=== PATIENT | female | born 1945 | race Caucasian/White ===

== ENCOUNTER 2018-12-14 16:30 | Emergency (ER) | payer OTHER ==
[~2018-12-14] VITALS: Ht 149.9 cm; Wt 59.5 kg
[~2018-12-14 16:30] MED LIST: AMLO10TA8 PO; ASPI-515 PO; ERGO500017 PO; LOSA100T14 PO; METF500T17 PO; OMEP-110 PO; SIMV20TA3 PO
--- NOTE | 2018-12-14 17:15 | NUR ---
PT TO ROOM FROM LOBBY
[2018-12-14] MEDS ORDERED: ACETAMINOPHEN 325 MG TABLET PO ONE (18:00)
[2018-12-14] MEDS ORDERED: CYCLOBENZAPRINE 10 MG TABLET PO ONE (18:00)
[2018-12-14] MEDS ORDERED: KETOROLAC 30 MG/1 ML IM ONE (18:00)
[2018-12-14] MEDS ORDERED: ACETAMINOPHEN 325 MG TABLET ONE (18:03)
[2018-12-14] MEDS ORDERED: KETOROLAC 30 MG/1 ML ONE (18:03)
[2018-12-14] MEDS ORDERED: CYCLOBENZAPRINE 10 MG TABLET ONE (18:03)
[2018-12-14] MEDS ORDERED: KETOROLAC 30 MG/1 ML IVPush ONE (18:30)
--- NOTE | 2018-12-14 18:30 | NUR ---
pt to xray
[2018-12-14 18:31] LABS: ALBUMIN 3.6 g/dL (3.4-5.0); ANION GAP 7 mmol/L (5-15); CALCIUM 9.9 mg/dL (8.5-10.1); CHLORIDE 106 mmol/L (98-107)
[2018-12-14 18:32] LABS: CREATININE 1.71 mg/dL (0.55-1.02)
[2018-12-14 18:42] LABS: MICROSCOPIC AUTO
[2018-12-14 18:49] LABS: CULTURE INDICATED? YES
[2018-12-14] MEDS ORDERED: SODIUM CHLORIDE FLUSH 10ML SYR IVF ONE (19:00)
[2018-12-14] MEDS ORDERED: CEFTRIAXONE PMX 1GM/50ML 50 ML IV ONE (19:00)
[2018-12-14 19:02] LABS: BASOPHILS # (AUTO) 0.04 x10^3/uL (0-0.1); BASOPHILS % (AUTO) 1 % (0-1); EOSINOPHILS # (AUTO) 0.33 x10^3/uL (0-0.4); EOSINOPHILS % (AUTO) 5 % (1-7); LYMPHOCYTES # (AUTO) 1.14 x10^3/uL (1-3.4); LYMPHOCYTES % (AUTO) 16 % (22-44); MD SCAN; MEAN CORPUSCULAR HEMOGLOBIN 28.1 pg (27.0-34.8); MEAN CORPUSCULAR VOLUME 87.8 fL (80-100); MEAN PLATELET VOLUME 10.8 fL (7.4-10.4); MONOCYTES % (AUTO) 4 % (2-9); NEUTROPHILS # (AUTO) 5.35 x10^3/uL (1.8-6.8); NEUTROPHILS % (AUTO) 75 % (42-75); PLATELET COUNT 159 x10^3/uL (130-400); RED BLOOD COUNT 3.63 x10^6/uL (3.82-5.3); RED CELL DISTRIBUTION WIDTH 14.4 % (9.6-15.2)
[2018-12-14] MEDS ORDERED: CEFTRIAXONE PMX 1GM/50ML 50 ML ONE (19:13)
--- NOTE | 2018-12-14 19:16 | NUR ---
report to pancho Terrell.
--- NOTE | 2018-12-14 19:52 | NUR ---
report taken from pancho Terrell.
[2018-12-14 20:15] VITALS: BP 165/76
--- NOTE | 2018-12-14 20:28 | NUR ---
piv dc'd with tip intact. pt given dc instructions and script, pt and her daughter (translating for pt) educated regarding dc rx for omnicef and flexiril. pt and daughter verbalize understanding. pt ambulatory with steady gait at dc, given wc escort to dc. pt a&o, resps even and unlabored, nadn at dc. all questions answered.
== END 2018-12-14 20:28 | disposition home or self-care (01) ==
LOC: ED 19:10
DX: M54.42 Lumbago with sciatica, left side (principal); N30.00 Acute cystitis without hematuria; E78.00 Pure hypercholesterolemia, unspecified; N18.9 Chronic kidney disease, unspecified; R73.9 Hyperglycemia, unspecified
CPT/HCPCS: 36415; 72110; 73502; 74176; 80048; 81001; 82040; 85025; 87077; 87086; 87186; 96365; 96375; 99284; J0696; J1885

== ENCOUNTER 2019-09-25 23:08 | Inpatient (IN) | payer OTHER ==
[~2019-09-25] VITALS: Ht 144.8 cm; Wt 69.6 kg
[2019-09-26] MEDS ORDERED: DEXAMETHASONE 4 MG TABLET ONE (00:08)
[2019-09-26] MEDS ORDERED: ACETAMINOPHEN 325 MG TABLET ONE (00:09)
[2019-09-26] MEDS ORDERED: ONDANSETRON ODT 4 MG ONE (00:17)
[2019-09-26 00:22] LABS: BASOPHILS # (AUTO) 0.01 x10^3/uL (0-0.1); BASOPHILS % (AUTO) 0 % (0-1); EOSINOPHILS % (AUTO) 1 % (1-7); LYMPHOCYTES # (AUTO) 0.63 x10^3/uL (1-3.4); LYMPHOCYTES % (AUTO) 7 % (22-44); MD NO; MEAN CORPUSCULAR HEMOGLOBIN 28.9 pg (27.0-34.8); MEAN CORPUSCULAR HGB CONC 32.3 g/dL (32.4-35.8); MEAN CORPUSCULAR VOLUME 89.3 fL (80-100); MONOCYTES # (AUTO) 0.33 x10^3/uL (0.2-0.8); MONOCYTES % (AUTO) 4 % (2-9); NEUTROPHILS # (AUTO) 7.86 x10^3/uL (1.8-6.8); NEUTROPHILS % (AUTO) 88 % (42-75); PLATELET COUNT 197 x10^3/uL (130-400); RED CELL DISTRIBUTION WIDTH 15.6 % (9.6-15.2)
--- NOTE | 2019-09-26 00:29 | NUR ---
Patient SPO2 80% on RA. Applied O2, 3lpm NC, SPO2 increased to 95%. Breathing tx ordered by provider.
[2019-09-26] MEDS ORDERED: ACETAMINOPHEN 325 MG TABLET PO ONE (00:30)
[2019-09-26] MEDS ORDERED: ALBUTEROL/IPRATROPIUM 2.5MG/0.5MG, 3 ML NPPB ONE (00:30)
[2019-09-26] MEDS ORDERED: DEXAMETHASONE 4 MG TABLET PO ONE (00:30)
[2019-09-26] MEDS ORDERED: ONDANSETRON ODT 4 MG PO ONE (00:30)
[2019-09-26 00:34] LABS: ALBUMIN 3.6 g/dL (3.4-5.0); ANION GAP 8 mmol/L (5-15); CALCIUM 9.3 mg/dL (8.5-10.1); CHLORIDE 109 mmol/L (98-107)
[2019-09-26] MEDS ORDERED: ALBUTEROL/IPRATROPIUM 2.5MG/0.5MG, 3 ML ONE (00:34)
[2019-09-26 00:35] LABS: RAPID INFLUENZA A Negative (Negative); RAPID INFLUENZA B Negative (Negative)
[2019-09-26 00:37] LABS: ALANINE AMINOTRANSFERASE 18 U/L (12-78); ALKALINE PHOSPHATASE 63 U/L (45-117); BILIRUBIN,TOTAL 0.7 mg/dL (0.2-1.0); TOTAL PROTEIN 8.2 g/dL (6.4-8.2)
--- NOTE | 2019-09-26 00:39 | NUR ---
RT in room
--- NOTE | 2019-09-26 00:55 | NUR ---
Patient states she is feeling less SOB.
--- NOTE | 2019-09-26 01:16 | NUR ---
PT RESTING ON GURNEY, STATED SHE FEELS BETTER AFTER THE RESPIRATORY T/X, LIZZIE SNEEDS AT THSI TIME, MONITORS IN PLACE, CALL LIGHT WITHIN REACH. CHART UP FOR RECHECK
[2019-09-26] MEDS ORDERED: SODIUM CHLORIDE 0.9% 1,000 ML IV ONE (01:28)
[2019-09-26] MEDS ORDERED: SODIUM CHLORIDE FLUSH 10ML SYR IVF ONE (01:30)
[2019-09-26] MEDS ORDERED: AZITHROMYCIN 500 MG in SODIUM CHLORIDE 0.9% 250 ML IV ONE (01:30)
[2019-09-26] MEDS ORDERED: CEFTRIAXONE PMX 1GM/50ML 50 ML IV ONE (01:30)
--- NOTE | 2019-09-26 01:39 | NUR ---
tp: [facility] refused pt request for transfer.
[2019-09-26] MEDS ORDERED: CEFTRIAXONE PMX 1GM/50ML 50 ML ONE (01:42)
--- NOTE | 2019-09-26 01:49 | NUR ---
IV SITE STARTED, IV FLUIDS INFUSING
[2019-09-26] MEDS ORDERED: GLIP5TAB10 PO (01:56)
[2019-09-26] MEDS ORDERED: HYDROcodone/APAP 5/325 TABLET PO PRN (02:00)
--- NOTE | 2019-09-26 03:19 | NUR ---
PT RESTING ON HOSPITAL BED, IV FLUIDS AND ABX'S INFUSING, MONITORS IN PLACE, DENIES NEEDS AT THSI TIME, CALL LIGHT WITHIN REACH. AWAITING ROOM FOR ADMIT
[2019-09-26] MEDS: SODIUM CHLORIDE 0.9% 1,000 ML IV SCH ×2 (03:28→15:49)
--- NOTE | 2019-09-26 04:30 | NUR ---
PT RESTING ALMLY, NAD, DENIES NEEDS, MONITORS IN PLACE, RESPIRATIONS EVEN AND UNLABORED, CALL LIGHT WITHIN REACH
--- NOTE | 2019-09-26 05:51 | NUR ---
PT RESTING WITH EYES CLOSED, NAD, EQUAL CHEST RISE/FALL OBSERVED, MONITORS IN PLACE, AWAITING ROOM FOR ADMIT
--- NOTE | 2019-09-26 06:58 | NUR ---
BEDSIDE REPORT GIVEN TO RADHAMES DAVIS
--- NOTE | 2019-09-26 07:05 | NUR ---
Davie bobo in ED - 09/26/19 at 0802 by KALANI REC BS REPORT PT RESTING PROVIDE PILLOW WAITING ON CT
--- NOTE | 2019-09-26 07:05 | NUR ---
REC BS REPORT PT RESTING
[2019-09-26] MEDS ORDERED: INSULIN LISPRO SINGLE DOSE, ER SQ-INSULIN ONE (07:19)
[2019-09-26] MEDS: INSULIN LISPRO 100 UNITS/ML, PEN SQ-INSULIN SCH ×4 (07:21→21:51)
[2019-09-26] MEDS ORDERED: AMLODIPINE 5 MG TABLET PO SCH (09:00)
--- NOTE | 2019-09-26 09:36 | NUR ---
REPORT RECEIVED FROM RADHAMES DAVIS, THIS RN ASSUMING CARE AT THIS TIME.
--- NOTE | 2019-09-26 09:44 | NUR ---
PHARMACY CALLED AND ASKED TO VERIFY AM HOME MEDS.
[2019-09-26] MEDS ORDERED: AMLODIPINE 5 MG TABLET ONE (10:01)
[2019-09-26] MEDS ORDERED: FAMOTIDINE 20 MG TABLET ONE (10:01)
[2019-09-26] MEDS ORDERED: OMEPRAZOLE 20 MG CAPSULE.DR ONE (10:04)
[2019-09-26] MEDS: OMEPRAZOLE 20 MG CAPSULE.DR PO SCH (10:05)
--- NOTE | 2019-09-26 10:20 | NUR ---
PT MEDICATED PER EMAR, TOLERATED WELL. PT A&O, RESPS EVEN AND UNLABORED. PT AMB TO BATHROOM WITH STEADY GAIT, ASSISTED BACK INTO BED. PT DENIES ANY DIFFICULTY VOIDING. PT DENIES ANY PAIN. WORK OF BREATHING INCREASED WITH WALK TO BATHROOM, PT NOW HAS BASELINE RESP EFFORT. AWAITING BED ASSIGNMENT AND TRANSPORT, PT AND FAMILY UPDATED WITH POC.
--- NOTE | 2019-09-26 10:48 | NUR ---
PT'S HOSPITALIST, POP, CALLED TO CLARIFY ABX ORDERS. DID NOT ANSWER, MESSAGE LEFT WITH CALL BACK NUMBER.
--- NOTE | 2019-09-26 11:13 | NUR ---
RT paged for tx, pt is short of breath after changing clothes.
--- NOTE | 2019-09-26 11:15 | NUR ---
MD Payan paged a second time to review abx orders. No answer when called, message left with call back number. PIV placed to left foream, IVF restarted to this side as PIV to right forearm is painful at site. Pt resting in hospital bed after changing clothes with RN assist. Resps even and mildly labored, all monitors in place. pt satting >90% on 2L oxygen via NC. awaiting room on med-surg at this time. awaiting RT tx.
--- NOTE | 2019-09-26 11:38 | NUR ---
MD ARMAS PAGED THIRD TIME TO CLARIFY ABX ORDERS.
[2019-09-26] MEDS ORDERED: ALBUTEROL SULFATE 2.5 MG/3 ML ONE (11:56)
[2019-09-26] MEDS: ALBUTEROL/IPRATROPIUM 2.5MG/0.5MG, 3 ML NPPB PRN ×2 (11:58→20:48)
--- NOTE | 2019-09-26 12:00 | NUR ---
MD Payan reached; instructed RN to contact pharmacy and request they start levaquin today at a time they deem appropriate based off of time last abx receieved. this RN spoke with pharmacist Zurdo who reviewed last abx given and states he will start levaquin today at 1500.
--- NOTE | 2019-09-26 13:10 | NUR ---
REPORT CALLED TO RECEIVING RN CHIP. PER RECEIVING RN, ROOM IS NOT CLEAN YET. THROUGHPUT RN NOTIFIED. THIS RN REQUESTED INSULIN PEN FOR LUNCH COVERAGE, INSULIN PENS ARE NOT IN ED OMINICELL. PT A&O, RESPS EVEN AND UNLABORED. PT DENIES PAIN. WORK OF BREATHING IMPROVED S/P RT TX.
--- NOTE | 2019-09-26 14:00 | NUR ---
pt completed 50% diabetic lunch tray; insulin pen received from pharmacy, pt medicated with lunchtime dose of insulin. pt a&o, resps even and unlabored. sinus tach rate 90-100 on traffic monitor specialist with no ectopy. pt does not have any dyspnea at this time, denies pain. pt to be transported shortly to medical floor.
--- NOTE | 2019-09-26 14:10 | NUR ---
hospitalist Pop called to notify that pt has not had blood cultures drawn or lactic acid level drawn, despite meeting criteria for severe sepsis. hospitalist did not answer phone, message left with call back number. receiving RADHAMES Bernal notified that pt is meeting criteria for severe sepsis and has not had lactic acid or blood cx drawn. receiving RADHAMES Bernal states she will follow up with this before hanging scheduled levaquin. receiving RN notified of time last insulin dose given. pt transported to medical floor, [pt a&o, resps even and unlabored. no complaint at transport. family accompanying pt at transport. pt's family translating for pt regarding POC.
--- NOTE | 2019-09-26 14:15 | NUR ---
pt's toni pen sent with patient transport to medical floor.
[2019-09-26] MEDS ORDERED: LEVOFLOXACIN/PMX 500MG/100ML 100 ML IV ONE (15:00)
[2019-09-26 15:32] VITALS: BP 106/65
[2019-09-26 16:25] VITALS: BP 153/102
[2019-09-26] MEDS ORDERED: GADOTERATE 7.5 MMOL/15 ML SYR ONE (17:57)
[2019-09-26 20:14] VITALS: BP 125/66
[2019-09-26] MEDS ORDERED: INSULIN GLARGINE 100 UNITS/ML, PEN SQ-INSULIN SCH (21:00)
[2019-09-26] MEDS: SIMVASTATIN 20 MG TABLET PO SCH (21:50)
[2019-09-26] MEDS: ONDANSETRON 2MG/ML, 2ML IVPush PRN (21:50)
[2019-09-26 21:55] LABS: CULTURE INDICATED? YES; MICROSCOPIC INDICATED
[2019-09-27] MEDS: MELATONIN 3 MG TABLET PO PRN (01:49)
[2019-09-27 03:55] VITALS: BP 114/70
[2019-09-27] MEDS: SODIUM CHLORIDE 0.9% 1,000 ML IV SCH ×2 (04:44→12:19)
[2019-09-27] MEDS: ONDANSETRON 2MG/ML, 2ML IVPush PRN ×2 (04:44→10:52)
[2019-09-27] MEDS: ALBUTEROL/IPRATROPIUM 2.5MG/0.5MG, 3 ML NPPB PRN (05:01)
[2019-09-27 06:23] LABS: ANION GAP 9 mmol/L (5-15); CALCIUM 8.5 mg/dL (8.5-10.1); CHLORIDE 111 mmol/L (98-107)
[2019-09-27 06:27] LABS: MEAN CORPUSCULAR HEMOGLOBIN 29.2 pg (27.0-34.8); MEAN CORPUSCULAR HGB CONC 32.5 g/dL (32.4-35.8); MEAN CORPUSCULAR VOLUME 89.8 fL (80-100); MEAN PLATELET VOLUME 11.1 fL (7.4-10.4); PLATELET COUNT 185 x10^3/uL (130-400); RED BLOOD COUNT 2.75 x10^6/uL (3.82-5.3); RED CELL DISTRIBUTION WIDTH 15.6 % (9.6-15.2)
[2019-09-27 06:33] LABS: CREATININE 2.31 mg/dL (0.55-1.02)
[2019-09-27 06:48] LABS: BASOPHILS # (AUTO) 0.01 x10^3/uL (0-0.1); BASOPHILS % (AUTO) 0 % (0-1); EOSINOPHILS % (AUTO) 0 % (1-7); LYMPHOCYTES # (AUTO) 0.86 x10^3/uL (1-3.4); LYMPHOCYTES % (AUTO) 7 % (22-44); MD SCAN; MONOCYTES # (AUTO) 0.65 x10^3/uL (0.2-0.8); MONOCYTES % (AUTO) 6 % (2-9); NEUTROPHILS % (AUTO) 87 % (42-75)
[2019-09-27] MEDS: INSULIN LISPRO 100 UNITS/ML, PEN SQ-INSULIN SCH ×4 (07:00→22:15)
[2019-09-27] MEDS ORDERED: ASPIRIN 325 MG TABLET EC ONE (07:44)
[2019-09-27] MEDS ORDERED: FUROSEMIDE 20 MG/2 ML ONE (07:46)
[2019-09-27] MEDS ORDERED: FUROSEMIDE 20 MG/2 ML IV ONE (08:00)
[2019-09-27] MEDS ORDERED: HEPARIN 5,000 UNITS/ML, 1ML IV ONE (08:30)
[2019-09-27 08:41] LABS: BASOPHILS % (AUTO) 0 % (0-1); EOSINOPHILS % (AUTO) 0 % (1-7); LYMPHOCYTES # (AUTO) 0.82 x10^3/uL (1-3.4); LYMPHOCYTES % (AUTO) 7 % (22-44); MD NO; MEAN CORPUSCULAR HEMOGLOBIN 29.2 pg (27.0-34.8); MEAN CORPUSCULAR HGB CONC 32.5 g/dL (32.4-35.8); MEAN CORPUSCULAR VOLUME 89.8 fL (80-100); MEAN PLATELET VOLUME 9.6 fL (7.4-10.4); MONOCYTES # (AUTO) 0.61 x10^3/uL (0.2-0.8); MONOCYTES % (AUTO) 5 % (2-9); NEUTROPHILS # (AUTO) 10.39 x10^3/uL (1.8-6.8); NEUTROPHILS % (AUTO) 88 % (42-75); PLATELET COUNT 200 x10^3/uL (130-400); RED BLOOD COUNT 2.89 x10^6/uL (3.82-5.3); RED CELL DISTRIBUTION WIDTH 15.3 % (9.6-15.2)
[2019-09-27 08:47] VITALS: BP 132/73
[2019-09-27 08:56] LABS: ALANINE AMINOTRANSFERASE 27 U/L (12-78); ALBUMIN 3.1 g/dL (3.4-5.0); ANION GAP 6 mmol/L (5-15); CALCIUM 8.7 mg/dL (8.5-10.1); CHLORIDE 110 mmol/L (98-107); CREATININE 2.38 mg/dL (0.55-1.02)
[2019-09-27 09:00] LABS: ALKALINE PHOSPHATASE 49 U/L (45-117); BILIRUBIN,TOTAL 0.3 mg/dL (0.2-1.0); TOTAL PROTEIN 7.3 g/dL (6.4-8.2)
[2019-09-27] MEDS: NITROGLYCERIN 0.4 MG BOTTLE (25 TABS) SL PRN ×2 (09:11→10:51)
[2019-09-27] MEDS: ACETAMINOPHEN 325 MG TABLET PO PRN (09:17)
[2019-09-27] MEDS: CARVEDILOL 3.125 MG TABLET PO SCH ×2 (09:17→17:47)
[2019-09-27] MEDS: ASPIRIN 325 MG TABLET PO SCH (09:17)
[2019-09-27] MEDS: OMEPRAZOLE 20 MG CAPSULE.DR PO SCH (09:18)
[2019-09-27] MEDS: HEPARIN 25,000 UNITS/500ML PMX 500 ML IV PRN (09:20)
[2019-09-27] MEDS ORDERED: MORPHINE SULFATE 4 MG/ML, 1ML IVPush STA (11:44)
[2019-09-27] MEDS ORDERED: FUROSEMIDE 40 MG/4 ML IV ONE (12:00)
[2019-09-27] MEDS ORDERED: DEXTROSE 50%, 50ML VIAL IVPush ONE (12:30)
[2019-09-27 13:00] VITALS: BP 122/76
[2019-09-27 14:43] VITALS: BP 127/68
[2019-09-27] MEDS ORDERED: PROMETHAZINE 12.5 MG SUPP PR PRN (15:00)
[2019-09-27 22:00] VITALS: BP 122/72
[2019-09-27] MEDS: FUROSEMIDE 20 MG/2 ML IV SCH (22:07)
[2019-09-27] MEDS: ATORVASTATIN 40 MG TABLET PO SCH (22:13)
[2019-09-27] MEDS: SIMVASTATIN 20 MG TABLET PO SCH (22:16)
[2019-09-27] MEDS: INSULIN GLARGINE 100 UNITS/ML, PEN SQ-INSULIN SCH (22:16)
[2019-09-27 23:03] LABS: CREATININE,URINE RANDOM 16.2 mg/dL
[2019-09-27] MEDS: HEPARIN 5,000 UNITS/ML, 1ML IV PRN (23:04)
[2019-09-28 02:25] VITALS: BP 124/77
[2019-09-28] MEDS: ACETAMINOPHEN 325 MG TABLET PO PRN (04:16)
[2019-09-28 06:24] LABS: BASOPHILS # (AUTO) 0.04 x10^3/uL (0-0.1); BASOPHILS % (AUTO) 1 % (0-1); EOSINOPHILS # (AUTO) 0.02 x10^3/uL (0-0.4); EOSINOPHILS % (AUTO) 0 % (1-7); LYMPHOCYTES # (AUTO) 1.47 x10^3/uL (1-3.4); LYMPHOCYTES % (AUTO) 20 % (22-44); MD NO; MEAN CORPUSCULAR HEMOGLOBIN 28.5 pg (27.0-34.8); MEAN CORPUSCULAR VOLUME 89.3 fL (80-100); MEAN PLATELET VOLUME 11.1 fL (7.4-10.4); MONOCYTES # (AUTO) 0.37 x10^3/uL (0.2-0.8); MONOCYTES % (AUTO) 5 % (2-9); NEUTROPHILS # (AUTO) 5.33 x10^3/uL (1.8-6.8); NEUTROPHILS % (AUTO) 74 % (42-75); PLATELET COUNT 176 x10^3/uL (130-400); RED BLOOD COUNT 2.87 x10^6/uL (3.82-5.3); RED CELL DISTRIBUTION WIDTH 15.4 % (9.6-15.2)
[2019-09-28] MEDS: CARVEDILOL 3.125 MG TABLET PO SCH ×2 (06:28→18:12)
[2019-09-28 06:37] LABS: CHLORIDE 108 mmol/L (98-107)
[2019-09-28 06:49] LABS: % IRON SATURATION 5 % (20-55); ALANINE AMINOTRANSFERASE 25 U/L (12-78); ALBUMIN 2.8 g/dL (3.4-5.0); ALKALINE PHOSPHATASE 51 U/L (45-117); ANION GAP 6 mmol/L (5-15); BILIRUBIN,TOTAL 0.4 mg/dL (0.2-1.0); CALCIUM 8.6 mg/dL (8.5-10.1); CREATININE 2.61 mg/dL (0.55-1.02); IRON LEVEL 22 mcg/dL (50-170); TOTAL IRON BINDING CAPACITY 409 mcg/dL (250-450); TOTAL PROTEIN 6.9 g/dL (6.4-8.2)
[2019-09-28] MEDS: INSULIN LISPRO 100 UNITS/ML, PEN SQ-INSULIN SCH ×4 (07:00→22:33)
[2019-09-28] MEDS: ASPIRIN 325 MG TABLET PO SCH ×2 (07:55→08:08)
[2019-09-28] MEDS: IRON SUCROSE COMPLEX 100MG/5ML IV SCH (08:07)
[2019-09-28] MEDS: FUROSEMIDE 20 MG/2 ML IV SCH ×2 (08:08→09:22)
[2019-09-28] MEDS: OMEPRAZOLE 20 MG CAPSULE.DR PO SCH (08:08)
[2019-09-28 08:20] VITALS: BP 110/82
[2019-09-28 13:00] VITALS: BP 122/65
[2019-09-28] MEDS ORDERED: LEVOFLOXACIN/PMX 250MG/50ML 50 ML IV SCH (15:00)
[2019-09-28] MEDS: HEPARIN 25,000 UNITS/500ML PMX 500 ML IV PRN (18:15)
[2019-09-28 20:01] VITALS: BP 127/69
[2019-09-28] MEDS: ATORVASTATIN 40 MG TABLET PO SCH (22:32)
[2019-09-28] MEDS: INSULIN GLARGINE 100 UNITS/ML, PEN SQ-INSULIN SCH (22:33)
[2019-09-28] MEDS: SIMVASTATIN 20 MG TABLET PO SCH (22:33)
[2019-09-29 02:04] VITALS: BP 127/69
[2019-09-29 05:30] LABS: ALBUMIN 2.6 g/dL (3.4-5.0); ANION GAP 8 mmol/L (5-15); CHLORIDE 106 mmol/L (98-107)
[2019-09-29 05:31] LABS: CREATININE 2.48 mg/dL (0.55-1.02)
[2019-09-29 05:36] LABS: BASOPHILS # (AUTO) 0.03 x10^3/uL (0-0.1); BASOPHILS % (AUTO) 1 % (0-1); EOSINOPHILS # (AUTO) 0.17 x10^3/uL (0-0.4); EOSINOPHILS % (AUTO) 3 % (1-7); LYMPHOCYTES # (AUTO) 1.39 x10^3/uL (1-3.4); LYMPHOCYTES % (AUTO) 26 % (22-44); MD NO; MEAN CORPUSCULAR HEMOGLOBIN 28.6 pg (27.0-34.8); MEAN CORPUSCULAR HGB CONC 32.8 g/dL (32.4-35.8); MEAN CORPUSCULAR VOLUME 87.2 fL (80-100); MEAN PLATELET VOLUME 10.7 fL (7.4-10.4); MONOCYTES # (AUTO) 0.42 x10^3/uL (0.2-0.8); MONOCYTES % (AUTO) 8 % (2-9); NEUTROPHILS % (AUTO) 63 % (42-75); PLATELET COUNT 182 x10^3/uL (130-400); RED CELL DISTRIBUTION WIDTH 14.6 % (9.6-15.2)
[2019-09-29] MEDS: ASPIRIN 325 MG TABLET PO SCH ×2 (05:38)
[2019-09-29] MEDS: CARVEDILOL 3.125 MG TABLET PO SCH ×2 (05:38→17:01)
[2019-09-29 05:39] VITALS: BP 147/74
[2019-09-29] MEDS: ACETAMINOPHEN 325 MG TABLET PO PRN ×2 (05:39→22:42)
[2019-09-29] MEDS: INSULIN LISPRO 100 UNITS/ML, PEN SQ-INSULIN SCH ×4 (07:00→21:16)
[2019-09-29] MEDS: HEPARIN 5,000 UNITS/ML, 1ML IV PRN ×2 (07:29→21:01)
[2019-09-29] MEDS: FUROSEMIDE 20 MG/2 ML IV SCH (08:23)
[2019-09-29] MEDS: CHOLECALCIFEROL 1,000 UNIT TABLET PO SCH (08:24)
[2019-09-29] MEDS: OMEPRAZOLE 20 MG CAPSULE.DR PO SCH (08:24)
[2019-09-29] MEDS: IRON SUCROSE COMPLEX 100MG/5ML IV SCH (08:24)
[2019-09-29] MEDS ORDERED: LEVOFLOXACIN 500 MG TABLET PO SCH (08:30)
[2019-09-29 15:41] VITALS: BP 127/65
[2019-09-29] MEDS: HEPARIN 25,000 UNITS/500ML PMX 500 ML IV PRN (19:02)
[2019-09-29 19:49] VITALS: BP 131/68
[2019-09-29] MEDS: SIMVASTATIN 20 MG TABLET PO SCH (21:18)
[2019-09-29] MEDS: ATORVASTATIN 40 MG TABLET PO SCH (21:18)
[2019-09-29] MEDS: INSULIN GLARGINE 100 UNITS/ML, PEN SQ-INSULIN SCH (21:18)
[2019-09-30 01:08] VITALS: BP 124/64
[2019-09-30] MEDS: MELATONIN 3 MG TABLET PO PRN (01:47)
[2019-09-30] MEDS: ACETAMINOPHEN 325 MG TABLET PO PRN ×3 (01:47→22:38)
[2019-09-30 03:59] LABS: ALANINE AMINOTRANSFERASE 16 U/L (12-78); ALBUMIN 2.5 g/dL (3.4-5.0); ANION GAP 8 mmol/L (5-15); CALCIUM 8.1 mg/dL (8.5-10.1); CHLORIDE 104 mmol/L (98-107)
[2019-09-30 04:02] LABS: ALKALINE PHOSPHATASE 52 U/L (45-117); BILIRUBIN,TOTAL 0.3 mg/dL (0.2-1.0); TOTAL PROTEIN 6.1 g/dL (6.4-8.2)
[2019-09-30] MEDS: CARVEDILOL 3.125 MG TABLET PO SCH ×2 (05:45→16:59)
[2019-09-30] MEDS: ASPIRIN 325 MG TABLET PO SCH ×2 (05:45→06:00)
[2019-09-30] MEDS: INSULIN LISPRO 100 UNITS/ML, PEN SQ-INSULIN SCH ×4 (06:37→22:20)
[2019-09-30 06:38] VITALS: BP 130/57
[2019-09-30] MEDS: OMEPRAZOLE 20 MG CAPSULE.DR PO SCH (08:23)
[2019-09-30] MEDS: CHOLECALCIFEROL 1,000 UNIT TABLET PO SCH (08:24)
[2019-09-30] MEDS: FUROSEMIDE 40 MG TABLET PO SCH (08:24)
[2019-09-30] MEDS: IRON SUCROSE COMPLEX 100MG/5ML IV SCH (08:24)
[2019-09-30] MEDS: ONDANSETRON 2MG/ML, 2ML IVPush PRN (12:04)
[2019-09-30 13:54] VITALS: BP 116/63
[2019-09-30 20:22] VITALS: BP 112/67
[2019-09-30] MEDS ORDERED: ATORVASTATIN 40 MG TABLET PO SCH (21:00)
[2019-09-30] MEDS ORDERED: LEVOFLOXACIN 250 MG TABLET PO SCH (21:00)
[2019-09-30] MEDS ORDERED: INSU100V8 SQ (22:11)
[2019-09-30] MEDS: INSULIN GLARGINE 100 UNITS/ML, PEN SQ-INSULIN SCH (22:21)
[2019-10-01 00:03] VITALS: BP 136/64
[2019-10-01] MEDS: MELATONIN 3 MG TABLET PO PRN (00:21)
[2019-10-01] MEDS ORDERED: CHOL2000 PO (00:39)
[2019-10-01 05:14] LABS: BASOPHILS # (AUTO) 0.01 x10^3/uL (0-0.1); BASOPHILS % (AUTO) 0 % (0-1); EOSINOPHILS # (AUTO) 0.32 x10^3/uL (0-0.4); EOSINOPHILS % (AUTO) 7 % (1-7); LYMPHOCYTES # (AUTO) 0.89 x10^3/uL (1-3.4); LYMPHOCYTES % (AUTO) 19 % (22-44); MD NO; MEAN CORPUSCULAR HGB CONC 32.4 g/dL (32.4-35.8); MEAN CORPUSCULAR VOLUME 89.5 fL (80-100); MEAN PLATELET VOLUME 10.9 fL (7.4-10.4); MONOCYTES # (AUTO) 0.39 x10^3/uL (0.2-0.8); MONOCYTES % (AUTO) 8 % (2-9); NEUTROPHILS # (AUTO) 3.14 x10^3/uL (1.8-6.8); NEUTROPHILS % (AUTO) 66 % (42-75); PLATELET COUNT 182 x10^3/uL (130-400); RED BLOOD COUNT 2.69 x10^6/uL (3.82-5.3); RED CELL DISTRIBUTION WIDTH 14.9 % (9.6-15.2)
[2019-10-01 05:25] LABS: ALBUMIN 2.8 g/dL (3.4-5.0); CHLORIDE 104 mmol/L (98-107)
[2019-10-01 05:27] LABS: ANION GAP 8 mmol/L (5-15); CALCIUM 8.6 mg/dL (8.5-10.1); CREATININE 2.58 mg/dL (0.55-1.02)
[2019-10-01] MEDS ORDERED: ASPIRIN 81 MG TABLET EC PO SCH (06:00)
[2019-10-01] MEDS: INSULIN LISPRO 100 UNITS/ML, PEN SQ-INSULIN SCH ×3 (06:31→16:00)
[2019-10-01] MEDS: OMEPRAZOLE 20 MG CAPSULE.DR PO SCH (07:34)
[2019-10-01] MEDS: FUROSEMIDE 40 MG TABLET PO SCH (07:34)
[2019-10-01] MEDS: CHOLECALCIFEROL 1,000 UNIT TABLET PO SCH (07:34)
[2019-10-01] MEDS: CARVEDILOL 3.125 MG TABLET PO SCH (07:34)
[2019-10-01] MEDS: IRON SUCROSE COMPLEX 100MG/5ML IV SCH (09:00)
[2019-10-01] MEDS: ONDANSETRON 2MG/ML, 2ML IVPush PRN (09:11)
[2019-10-01 09:14] VITALS: BP 128/63
[2019-10-01] MEDS ORDERED: GLIP10TA13 PO (10:45)
[2019-10-01] MEDS ORDERED: AMLO-150 PO (10:45)
[2019-10-01] MEDS ORDERED: PIOG30TA67 PO (10:45)
[2019-10-01] MEDS ORDERED: ATOR10TA9 PO (10:45)
[2019-10-01] MEDS ORDERED: ASPI81TA45 PO (11:02)
[2019-10-01] MEDS ORDERED: OMEP-110 PO (11:02)
[2019-10-01] MEDS ORDERED: NITR0.4T28 SL (11:02)
[2019-10-01] MEDS ORDERED: LEVO250T8 PO (11:02)
[2019-10-01] MEDS ORDERED: FURO40TA6 PO (11:02)
[2019-10-01] MEDS ORDERED: ATOR40TA78 PO (11:02)
[2019-10-01] MEDS ORDERED: INSU100I11 SQ-INSULIN (11:02)
[2019-10-01] MEDS ORDERED: CARV3.1212 PO (11:02)
[2019-10-01] MEDS ORDERED: ONDA4TAB7 PO (12:18)
[2019-10-01 12:52] VITALS: BP 146/71
[2019-10-01] MEDS ORDERED: ONDANSETRON ODT 4 MG ONE (15:33)
== END 2019-10-01 18:18 | disposition home health service (06) | DRG 871 ==
LOC: ED 09-26 01:30 → EDIP 09-26 05:56 → 3N 09-26 14:36 → 5SO 09-27 08:32
PROVIDERS: ADMIT Internal Medicine; ATTEND Internal Medicine
DX: A41.9 Sepsis, unspecified organism (principal); I21.4 Non-ST elevation (NSTEMI) myocardial infarction; J96.01 Acute respiratory failure with hypoxia; J15.3 Pneumonia due to streptococcus, group B; N17.9 Acute kidney failure, unspecified; I13.0 Hypertensive heart and chronic kidney disease with heart failure and stage 1 through stage 4 chronic kidney disease, or unspecified chronic kidney disease; I50.32 Chronic diastolic (congestive) heart failure; N18.4 Chronic kidney disease, stage 4 (severe); N25.81 Secondary hyperparathyroidism of renal origin; D50.9 Iron deficiency anemia, unspecified; D63.1 Anemia in chronic kidney disease; E11.22 Type 2 diabetes mellitus with diabetic chronic kidney disease; E55.9 Vitamin D deficiency, unspecified; E78.5 Hyperlipidemia, unspecified; E86.0 Dehydration; G89.29 Other chronic pain; I08.1 Rheumatic disorders of both mitral and tricuspid valves; I27.20 Pulmonary hypertension, unspecified; K21.9 Gastro-esophageal reflux disease without esophagitis; J02.9 Acute pharyngitis, unspecified; K59.00 Constipation, unspecified; M81.0 Age-related osteoporosis without current pathological fracture; Z79.4 Long term (current) use of insulin; Z83.3 Family history of diabetes mellitus; Z86.73 Personal history of transient ischemic attack (TIA), and cerebral infarction without residual deficits; Z87.891 Personal history of nicotine dependence; Z88.0 Allergy status to penicillin; Z90.710 Acquired absence of both cervix and uterus
CPT/HCPCS: 36415; 71045; 72158; 76770; 78580; 80048; 80053; 80069; 81001; 82306; 82570; 82728; 82962; 83540; 83550; 83735; 83970; 84100; 84145; 84155; 84156; 84165; 84484; 85025; 85379; 85520; 87040; 87081; 87086; 87147; 87400; 87880; 93005; 93306; 93970; 94640; 99285; G0378; J0456; J0696; J1644; J1756; J1940; J1956; J2405; J7620; Q0162; A9540; A9575; J1815; J2270; J7030; J7050